=== PATIENT | female | born 1945 | race Caucasian/White ===

== ENCOUNTER 2017-04-01 18:10 | Emergency (ER) | payer MEDICARE ==
--- NOTE | ~2017-04-01 | ER ---
PATIENT'S NAME: AIDEN [facility] AGE: 71 Y [address] ROOM: [place] [address] LOCATION: ED ADMIT DATE: 04/01/2017 ER/Outpatient Report DISCHARGE DATE: 04/01/2017 FAMILY PHYSICIAN: PHYSICIAN, NO ATTENDING PHYSICIAN: Florence Stock Time of Admission: 1810 hours. Time of Evaluation: 1840 hours. CHIEF COMPLAINT: Possible urinary tract infection. HISTORY OF PRESENT ILLNESS: Aiden is a 71-year-old, female, who presents with her to the emergency room with a 1-day history of dysuria, increased urgency, and lower abdominal pain. The patient has a long-standing history of urinary tract infections and which she has recently been worked up and had a full workup by a urologist in [place] where she is from. They have determined she likely has interstitial cystitis, she has also had multiple urinary tract infections that have been positive for cultures. She is not sure what bacteria has found to be positive, but it has shown a sensitivity to ciprofloxacin. Eight days ago, she did start on amitriptyline 50 mg 1 p.o. daily for the suspected interstitial cystitis. The patient reports this morning upon awakening as they were in [place] she had some burning and also felt an increased urgency. She denies any fevers or chills, nausea, or vomiting. She does have some Pyridium that she carries with her, that she has been taking p.r.n. The patient denies any other symptoms, no recent URI symptoms, has recently had a UTI in which she just finished on ciprofloxacin this past Tuesday. PAST MEDICAL HISTORY: 1. History of frequent UTIs. 2. Suspected interstitial cystitis. 3. Hypertension. 4. Postsurgical hysterectomy. 5. Postsurgical bladder lift, 2002. ALLERGIES: 1. PENICILLIN. 2. SULFA. 3. KEFLEX. CURRENT MEDICATIONS: 1. Amitriptyline 50 mg 1 p.o. daily. 2. Amlodipine 5 mg 1 p.o. daily. PATIENT'S NAME: AIDEN [facility] AGE: 71 Y [address] ROOM: [place] [address] LOCATION: ED ADMIT DATE: 04/01/2017 ER/Outpatient Report DISCHARGE DATE: 04/01/2017 FAMILY PHYSICIAN: PHYSICIAN, NO ATTENDING PHYSICIAN: Florence Stock 3. Prilosec 20 mg 1 p.o. daily. 4. Pyridium 1 tablet p.r.n. dysuria. SOCIAL HISTORY: The patient is a nonsmoker, no history of smoking. She denies alcohol or illicit drug use. She is up to date with her immunizations. FAMILY HISTORY: Not obtained. REVIEW OF SYSTEMS: All systems reviewed by myself and negative with the exception of those noted in the HPI. PHYSICAL EXAMINATION: VITAL SIGNS: Height 5 feet 10 inches, weight 79 kg. Temperature 97.9, pulse 84, respirations 18, blood pressure 163/90, and she is 97% on room air. GENERAL: The patient is alert and oriented x4, cooperative, in no acute distress. She is very pleasant. SKIN: Overall is within normal limits. There is no pallor or diaphoresis noted. HEENT: Eyes; sclerae are nonicteric. Pupils equal, round, and reactive to light. Mouth and throat; oropharynx is clear. Buccal mucosa is moist. Tongue is midline. CHEST AND LUNGS: Lung sounds are clear throughout. HEART: Regular rhythm without murmur. ABDOMEN: She has suprapubic tenderness. Bowel sounds are active throughout. There are no masses or other abnormalities present. No CVA tenderness noted. LOWER EXTREMITIES: No peripheral edema is noted. NEUROLOGIC: No focal deficits noted. LABORATORY DATA: Please note a urinalysis was obtained, in which she does have an elevated leukocyte, wbc's 2-5, epithelials 5-10, moderate bacteria with 0-2 rbc's. We did talk about obtaining a culture with the patient, she would rather not at this time as she has had multiple previous cultures. ASSESSMENT: 1. Urinary tract infection, symptomatic. 2. History of suspected interstitial cystitis. PLAN: The patient has quite a few allergies, is not allergic to Macrodantin, but reports she has not done well on this and it sounds like it must be resistant to her previous cultures. She had just had 7 days of the Cipro and maybe just PATIENT'S NAME: AIDEN [facility] AGE: 71 Y [address] ROOM: [place] [address] LOCATION: [facility] ADMIT DATE: 04/01/2017 ER/Outpatient Report DISCHARGE DATE: 04/01/2017 FAMILY PHYSICIAN: PHYSICIAN, NO ATTENDING PHYSICIAN: Florence Stock not long enough. We will go ahead and give her a script for ciprofloxacin 500 mg twice daily for 10 days. They will be traveling to [place] and not return home to [place] until April 15. She does have an appointment with her urologist when they get home. She will go ahead and take the entire course of the antibiotic, make sure she is drinking plenty of fluids, and use her Pyridium as needed. If she would have any changes in symptoms, she is to be seen in an Urgent Care or and/or ER as needed. The patient's condition is stable, verbalizes understanding. ORESTES SCHWARTZ APRN FOR MD KAMALA ROQUE/timmy /[id number] d: 04/02/17 0010 t: 04/11/172008, OUTPATIENT REPORT
[2017-04-01 19:25] LABS: BILIRUBIN URINE NEGATIVE (NEGATIVE); BLOOD URINE 50 /UL (NEGATIVE); COLOR URINE YELLOW (YELLOW); GLUCOSE URINE NEGATIVE (NEGATIVE); KETONE URINE 15 mg/dL (NEGATIVE); LEUKOCYTES URINE 25 /UL (NEGATIVE); NITRITE URINE NEGATIVE (NEGATIVE); PROTEIN URINE NEGATIVE (NEGATIVE); SPEC GRAVITY URINE 1.025 (1.003-1.035); TURBIDITY URINE CLEAR (CLEAR); UROBILINOGEN URINE NORMAL (NORMAL)
[2017-04-01 19:36] LABS: BACTERIA URINE MODERATE (NEGATIVE); RBC URINE 0-2 #/HPF (NEGATIVE)
[2017-04-01 19:37] LABS: MUCUS URINE 1+ (NEGATIVE)
== END 2017-04-01 19:46 | disposition disaster alternative care site (69) ==
LOC: GMED 18:10
PROVIDERS: Nurse Practitioner Family
DX: N39.0 Urinary tract infection, site not specified (principal); I10 Essential (primary) hypertension; Z90.710 Acquired absence of both cervix and uterus; Z88.8 Allergy status to other drugs, medicaments and biological substances; Z88.2 Allergy status to sulfonamides; Z88.1 Allergy status to other antibiotic agents; Z79.899 Other long term (current) drug therapy